=== PATIENT | male | born 2005 | race Caucasian/White ===

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

== ENCOUNTER 2024-12-08 10:08 | Emergency (ER) | payer SELFPAY ==
[2024-12-08] MEDS ORDERED: Ibuprofen 800 MG TAB ONE (10:24)
== END 2024-12-08 11:09 | disposition home or self-care (01) ==
LOC: MADERS 10:08
DX: J06.9 Acute upper respiratory infection, unspecified (principal)
CPT/HCPCS: 71046; 93005

== ENCOUNTER 2025-01-21 07:13 | Emergency (ER) | payer SELFPAY ==
[2025-01-21 07:59] LABS: #Basophils 0.1 thou/uL (0.0-0.2); #Eosinophils 0.5 thou/uL (0.0-0.7); #Lymphocytes 1.5 thou/uL (1.20-3.40); #Monocytes 0.5 thou/uL (0.11-0.59); #Neutrophils 3.3 thou/uL (1.40-6.50); %Basophils 2.2 % (0.0-1.0); %Eosinophils 9.0 % (0.0-10.0); %Lymphocytes 24.8 % (28.0-48.0); %Monocytes 7.7 % (0.0-4.0); %Neutrophils 56.3 % (31.0-61.0); Hematocrit 47.5 % (42.0-52.0); Hemoglobin 16.2 g/dL (14.0-18.0); Mean Corpuscular Hemoglobin 29.6 pg (25.0-35.0); Mean Corpuscular Volume 86.6 fl (78.0-98.0); Platelet Count 253 10x3/uL (130-400); Red Blood Cell (RBC) Count 5.48 mill/uL (4.00-5.20); White Blood Cell (WBC) Count 5.9 10x3/uL (4.8-10.8)
[2025-01-21 08:13] LABS: ALT (SGPT) 20 U/L (Less than 45); AST (SGOT) 26 U/L (11-34); Albumin 5.1 g/dL (3.1-4.5); Alkaline Phosphatase 57 U/L (50-130); Anion Gap 19 mmol/L (10-20); BUN (Urea Nitrogen) 17 mg/dL (8.9-20.6); Bilirubin, Total 0.8 mg/dL (0.3-1.2); CK (CPK) 184 U/L (30-200); Calc. Creatinine Clearance 0 mL/min (70-130); Calcium 9.7 mg/dL (7.8-10.44); Carbon Dioxide 23 mmol/L (22-29); Chloride 104 mmol/L (98-107); Globulin 2.6 g/dL (2.4-3.5); Glucose 89 mg/dL (70-105); Magnesium 1.9 mg/dL (1.7-2.2); Potassium 4.2 mmol/L (3.5-5.1); Sodium 142 mmol/L (136-145)
[2025-01-21 08:43] LABS: Cocaine Metabolite Screen Negative (Negative); THC/Cannabinoid Screen PRELIM POSITIVE (Negative); Tricyclic Screen Negative (Negative)
[2025-01-21 08:49] LABS: Troponin I Less than 0.010 ng/mL (< 0.028)
== END 2025-01-21 09:30 | disposition home or self-care (01) ==
LOC: MADERS 07:13
DX: R07.9 Chest pain, unspecified (principal); R00.2 Palpitations; F17.203 Nicotine dependence unspecified, with withdrawal
CPT/HCPCS: 71045; 80053; 80306; 82550; 83735; 83880; 84443; 84484; 85025; 85379; 93005